=== PATIENT | male | born 1950 | race Caucasian/White ===

== ENCOUNTER 2016-12-03 17:12 | Observation (INO) | payer MEDICARE, OTHER ==
--- NOTE | ~2016-12-03 | OP ---
Record Of Operation [facility] [address] [place]. [address] NAME: BRENDAN LYMAN : 52 STATUS : ADM IN [facility]#: [id number] AGE: 66 ADM/REG DATE : 12/03/16 MR#: [id number] REPORT SERV DATE: 12/04/16 DICTATED BY: CHEN DOYLE DATE: 12/03/16 REPORT STATUS : Draft TRANSCRIBED BY: MODL DATE: 12/03/16 DATE OF PROCEDURE: 12/03/2016 TITLE OF OPERATION: 1. Cystourethroscopy. 2. Laser ablation of bladder neck stones. 3. Laser incision of calcified bladder neck contracture. 4. Clot evacuation. 5. Placement of Read catheter. PREOPERATIVE DIAGNOSES: 1. Urinary retention. 2. Bladder neck contracture. 3. History of prostate cancer. POSTOPERATIVE DIAGNOSES: 1. Urinary retention. 2. Bladder neck contracture. 3. History of prostate cancer. INDICATIONS: The patient is a 66-year-old male history of prostate cancer. He underwent CyberKnife external beam radiation therapy in the past. This has failed. He had salvage prostatectomy. He developed a bladder neck contracture and urinary incontinence. After management of his bladder neck contracture, he underwent artificial urinary sphincter placement with good result. He has been doing fine with the sphincter until recently redeveloped urinary retention and hematuria. In the office, I scoped him and he was found have a bladder neck contracture with severe calcifications, therefore, he is brought to the operating room for operative management. ANESTHESIA: General. COMPLICATIONS: None. IMPLANTS: Fourteen-Danish coude catheter. SPECIMEN: Bladder stone and clot for pathologic identification. NARRATIVE: The patient was brought to the operating room, identified by his wristband. General anesthesia was induced. Ancef was given for preoperative antibiotics. He was placed in dorsal lithotomy position, prepped and draped in sterile fashion. I began the operation by identifying his artificial urinary sphincter pump in his scrotum. The pump was deactivated in the standard fashion. A 20-Danish rigid cystoscope was placed into his urethra and the artificial urinary sphincter cuff was identified and confirmed to be in the deactivated position. I drove the scope pass the sphincter with no difficulty encountered, a dense calcified bladder neck contracture. The bladder was densely pubic bone due to the prior radiation therapy. I could not use any flatus scope into the bladder. Therefore, the Record Of Operation [facility] [address] [place]. [address] NAME: BRENDAN LYMAN : 52 STATUS : ADM IN PAT#: [id number] AGE: 66 ADM/REG DATE : 12/03/16 MR#: [id number] REPORT SERV DATE: 12/04/16 DICTATED BY: CHEN DOYLE DATE: 12/03/16 REPORT STATUS : Draft TRANSCRIBED BY: JORDAN DATE: 12/03/16 scope was removed. A short rigid ureteroscope was then used to instrument and get close to the bladder neck calcified contracture. Using a 365 micron holmium laser fiber, I fragmented the bladder neck stones into multiple pieces until I was able to enter into the bladder. Once in the bladder, a 0.35 Sensor wire was placed into the bladder. A 14-Danish coude catheter was placed over the wire into the bladder, and the bladder was drained of urine. The urine was sent for culture to help guide further therapy. Once the bladder was drained, I drove a 20-Danish rigid cystoscope beside the wire to the level of the bladder neck. Given the increased diameter and scope, I could clearly see the bladder neck was calcified circumferentially. Using a 365 micron holmium laser fiber, I laser ablated and removed all stones from the bladder neck. Bladder neck contracture was incised laterally and superiorly to increase the diameter of the bladder neck. Had not incised inferiorly in fear of inducing a rectourethral fistula given his history of radiation therapy. Once the bladder neck was opened, I drove the scope into the bladder and inspected the bladder mucosa. There was no tumors or abnormalities found. There was a decent amount of clot in his bladder which was evacuated with Ellik evacuator. The Ellik evacuator was also used to evacuate numerous stone particles which were free from the bladder neck. The ureteral orifices were identified and found to be in orthotopic position and without injury. Once the bladder neck was completely free of stones, the scope was removed. The sphincter was inspected on the way out and found to be intact without any evidence of erosion. The sphincter was left deactivated. A 14-Danish coude catheter was placed into the bladder. The balloon was inflated to 50 mL of sterile water. The urine drained from the bladder were clear. There was no significant bleeding going on. At this time, the patient was awoken from anesthesia and transferred to recovery room in stable condition. I will plan on admitting secondary to the hospital overnight for intravenous antibiotics to prevent infection of this device. I also plan leaving his sphincter deactivated for about a week so as the dust settles. Read catheter will be removed in the morning. There were no complications. WARD/JENNIFERL Chen Doyle MD / [id number] CC: MD Juan Abraham M.D.
[~2016-12-03 17:12] MED LIST: AMOXIL500C PO; AUG500 PO; CALTRA600D PO; CINNAMON PO; CLARIT10 PO; CLARITD24H PO; CRESTOR10 PO; DSS PO; ESTER-C PO; FLOMAX4 PO; GLUCCHONDR PO; Glucosamine Chondroi PO; HALF81 PO; K500 PO; L-LYSINE1000 M1 PO; L-LYSINE500 M1 PO; MULTIVITAMI1 PO; OMEGA 3,6,9 PO; PCET PO; VITAMIN B PO; VITAMIN D31000 UNIT PO; VITAMIN E; VITE1000 PO; ZINC PO; ZYRTEC-D ALG PO
[2016-12-03 17:48] LABS: BASOPHILS 0.5 %; BASOPHILS ABSOLUTE 0.07 10/3/uL (0.0-0.16); EOSINOPHILS 1.2 %; EOSINOPHILS ABSOLUTE 0.16 10/3/uL (0.0-0.53); HEMATOCRIT 47.8 % (40.0-51.0); HEMOGLOBIN 16.6 g/dL (13.6-17.8); IMMATURE GRANULOCYTES 0.3 %; IMMATURE GRANULOCYTES ABSOLUTE 0.04 10/3/uL (0.0-0.11); LYMPHOCYTES 10.3 %; LYMPHOCYTES ABSOLUTE 1.35 10/3/uL (0.67-4.30); MEAN CORPUS HGB CONC 34.7 g/dL (32.0-36.0); MEAN CORPUSCULAR HEMOGLOB 30.8 pg (26.0-34.0); MEAN CORPUSCULAR VOLUME 88.7 fL (80-100); MEAN PLATELET VOLUME 8.6 fL (9.2-13.0); MONOCYTES 5.2 %; MONOCYTES ABSOLUTE 0.68 10/3/uL (0.21-1.20); NEUTROPHILS 82.5 %; NEUTROPHILS ABSOLUTE 10.87 10/3/uL (2.02-8.40); PLATELET COUNT 231 10/3/uL (150-400); RBC DISTRIBUTION WIDTH 13.4 % (12.0-16.0); RED CELL COUNT 5.39 10/6/uL (4.7-6.1)
[2016-12-03 17:53] LABS: MANUAL DIFF NO %; WHITE BLOOD CELLS 13.2 10/3/uL (4.5-10.5)
[2016-12-03 18:00] LABS: BUN (BLOOD UREA NITROGEN) 21 MG/DL (6-23); CHLORIDE, SERUM 109 MMOL/L (96-112); CO2 (CARBON DIOXIDE) 24 MMOL/L (24-34); CREATININE 1.01 MG/DL (0.70-1.30); GFR AFRICAN AMERICAN 90 ML/MIN (>=60); GFR NON AFRICAN AMERICAN 78 ML/MIN (>=60); GLUCOSE, SERUM 136 MG/DL (60-99); POTASSIUM, SERUM 4.1 MMOL/L (3.5-5.3); SODIUM, SERUM 145 MMOL/L (135-148)
[2016-12-04 05:18] LABS: CALCIUM, SERUM 8.5 MG/DL (8.5-10.4); CHLORIDE, SERUM 107 MMOL/L (96-112); CO2 (CARBON DIOXIDE) 26 MMOL/L (24-34); CREATININE 0.81 MG/DL (0.70-1.30); GFR AFRICAN AMERICAN 108 ML/MIN (>=60); GFR NON AFRICAN AMERICAN 93 ML/MIN (>=60); GLUCOSE, SERUM 109 MG/DL (60-99); POTASSIUM, SERUM 3.9 MMOL/L (3.5-5.3); SODIUM, SERUM 143 MMOL/L (135-148)
[2016-12-04 05:24] LABS: BUN (BLOOD UREA NITROGEN) 14 MG/DL (6-23)
[2016-12-04 05:25] LABS: BASOPHILS 0.5 %; BASOPHILS ABSOLUTE 0.05 10/3/uL (0.0-0.16); EOSINOPHILS 1.7 %; EOSINOPHILS ABSOLUTE 0.16 10/3/uL (0.0-0.53); HEMOGLOBIN 13.6 g/dL (13.6-17.8); IMMATURE GRANULOCYTES 0.1 %; IMMATURE GRANULOCYTES ABSOLUTE 0.01 10/3/uL (0.0-0.11); LYMPHOCYTES 20.2 %; LYMPHOCYTES ABSOLUTE 1.86 10/3/uL (0.67-4.30); MEAN CORPUSCULAR HEMOGLOB 30.4 pg (26.0-34.0); MEAN CORPUSCULAR VOLUME 86.8 fL (80-100); MONOCYTES 8.3 %; MONOCYTES ABSOLUTE 0.77 10/3/uL (0.21-1.20); NEUTROPHILS 69.2 %; NEUTROPHILS ABSOLUTE 6.38 10/3/uL (2.02-8.40); NUCLEATED RED BLOOD CELLS 0.6 /100WBC (0-0); RBC DISTRIBUTION WIDTH 13.4 % (12.0-16.0); RED CELL COUNT 4.48 10/6/uL (4.7-6.1); WHITE BLOOD CELLS 9.2 10/3/uL (4.5-10.5)
[2016-12-04 05:29] LABS: HEMATOCRIT 38.9 % (40.0-51.0); MANUAL DIFF NO %; PLATELET COUNT 321 10/3/uL (150-400)
[2016-12-04] MEDS ORDERED: BACDS PO (08:41)
[2017-05-06] MEDS ORDERED: AMOXIL500 MG PO (11:34)
== END 2016-12-04 11:34 | disposition home or self-care (01) ==
LOC: SDC 17:12 → 2SO 23:08
PROVIDERS: Urology
PROC: 0TCB8ZZ Extirpation of Matter from Bladder, Via Natural or Artificial Opening Endoscopic (ICD-10-PCS; 2016-12-03)
PROC: 0TCB8ZZ Extirpation of Matter from Bladder, Via Natural or Artificial Opening Endoscopic (ICD-10-PCS; principal; 2016-12-03 18:30)
DX: N21.0 Calculus in bladder (principal); N32.0 Bladder-neck obstruction; Z85.46 Personal history of malignant neoplasm of prostate
CPT/HCPCS: 80048; 80170; 85025; 87086; 88304; 93005; 96374; 96375; A9270-GY; G0378; J0330; J0690; J1580; J2250; J2405; J2710; J3010

== ENCOUNTER 2017-04-27 04:57 | Emergency (ER) | payer MEDICARE, OTHER ==
--- NOTE | ~2017-04-27 | CN ---
Consultation Report [facility] [id number] [facility] [place]. [address] NAME: BRENDAN BOLES : 52 STATUS : REG ER PAT#: [id number] AGE: 67 ADM/REG DATE : 04/27/17 MR#: [id number] REPORT SERV DATE: 04/27/17 DICTATED BY: Tristan CASIANO DATE: 04/27/17 REPORT STATUS : Draft TRANSCRIBED BY: MODL DATE: 04/27/17 EMERGENCY ROOM CONSULTATION NOTE DATE OF CONSULTATION: 04/27/2017 CHIEF COMPLAINT: Inability to urinate with gross hematuria. HISTORY OF PRESENT ILLNESS: Mr. Boles is a 67-year-old white male, with a fairly complicated urologic history, he underwent CyberKnife radiation therapy for localized prostate cancer at some point in the past, he had a recurrence, and underwent salvage radical prostatectomy on 03/07/[address] Downing. Since that time, he has had multiple procedures for dystrophic calcifications at the vesical neck. In addition, he had persistent severe incontinence and underwent a placement of an artificial sphincter on 03/03/2016. He had an additional recurrences of obstruction with hematuria on 12/03/2016 and underwent laser ablation of multiple stones, incision of his calcified bladder neck contracture, and clot evacuation by Dr. Doyle. He was doing reasonably well, he said until he started bleeding several days ago, and over the last 12 hours or so, he has been unable to void. He is in nshobknj-kr-bfzagq distress. He denies fever chills, nausea, and vomiting. PAST MEDICAL HISTORY: 1. Prostate cancer. 2. Radiation cystitis. 3. Dystrophic vesical neck calcifications. 4. Hypertension. PAST SURGICAL HISTORY: 1. Radical prostatectomy, salvage. 2. Multiple cystoscopies with urethral dilations, incision of vesical neck contracture, and stone ablation. 3. Placement of artificial genitourinary sphincter. HOME MEDICATIONS: Daily aspirin, vitamin B complex, calcium and vitamin D, cholecalciferol, docusate sodium, loratadine, glycine, Crestor, omega-3 fatty acids, cinnamon, Nelia-C, glucosamine, and Aquasol. ALLERGIES: HE IS LACTOSE INTOLERANT. REVIEW OF SYSTEMS: Negative except as noted above. FAMILY HISTORY: Negative for urologic disease. PHYSICAL EXAMINATION: Consultation Report [place] [id number] [facility] [place]. [address] NAME: BRENDAN BOLES : 52 STATUS : REG ER PAT#: [id number] AGE: 67 ADM/REG DATE : 04/27/17 MR#: [id number] REPORT SERV DATE: 04/27/17 DICTATED BY: Tristan CASIANO DATE: 04/27/17 REPORT STATUS : Draft TRANSCRIBED BY: MODL DATE: 04/27/17 GENERAL: Uncomfortable appearing, 67-year-old white male. VITAL SIGNS: Afebrile with normal vital signs. HEENT: Normocephalic and atraumatic. CHEST: No respiratory distress. HEART: Regular rate and rhythm. ABDOMEN: Nontender and nondistended. He has suprapubic distention with tenderness. GENITOURINARY: Normal appearing penis. He is leaking some urine into the bed. EXTREMITIES: No peripheral edema noted. The patient is ambulatory. IMPRESSION: 1. Urinary retention. 2. Gross hematuria with history of radiation cystitis. 3. History of dystrophic vesical neck calcifications, status post salvage radical prostatectomy. PLAN: The emergency room tried to place a catheter, I do not think that further attempts in this scenario with him awake are reasonable. I am going to take him to the OR, where I plan to deactivate his sphincter and open up his vesical neck enough to get the catheter in. I discussed with the patient's that if this is not possible or too difficulty, he may well need a suprapubic tube, but I am hopeful that we can at least get a catheter in and further plans for intervention can be discussed. There were no other questions. We will proceed as soon as the OR staff is ready. JPHoa/JORDAN Tristan Casiano M.D. / [id number] CC: Juan Treviño M.D.
--- NOTE | ~2017-04-27 | OP ---
Record Of Operation [facility] [address] [place]. [address] NAME: BRENDAN BOLES : 52 STATUS : REG ER PAT#: [id number] AGE: 67 ADM/REG DATE : 04/27/17 MR#: [id number] REPORT SERV DATE: 04/27/17 DICTATED BY: Tristan CASIANO DATE: 04/27/17 REPORT STATUS : Draft TRANSCRIBED BY: MODL DATE: 04/27/17 DATE OF PROCEDURE: 04/27/2017 PREOPERATIVE DIAGNOSES: 1. Urinary retention. 2. 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 3. Radiation cystitis. POSTOPERATIVE DIAGNOSES: 1. Urinary retention. 2. 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 3. Radiation cystitis. PROCEDURE: Cystoscopy, urethral dilation, laser lithotripsy of vesical neck calcifications, clot evacuation, bladder fulguration, Read catheter placement. SURGEON: Tristan Casiano M.D. ANESTHESIA: General endotracheal. COMPLICATIONS: None. DRAINS: 14-Danish Coude Read catheter. ESTIMATED BLOOD LOSS: Minimal. BRIEF HISTORY: Mr. Boles is a 67-year-old white male, known to my practice, previously seen by me one time with a history of prostate cancer treated with CyberKnife with local failure. Ultimately, treated with salvage radical prostatectomy by Dr. Downing on 03/07/2015. He has had multiple procedures for dystrophic vesical neck calcifications and ultimately had an artificial genitourinary sphincter placed on 03/03/2016. He has had an additional procedure for recurrent calcifications in November of this year. He came to the emergency room with difficulty urinating over 12 hours and gross hematuria for several days. He was in adjunct retention and it was decided to bring him to the operating room to try to place a catheter. We discussed the risks of bleeding, infection, anesthesia, injury to his sphincter, possibility he would need a suprapubic tube. There were no unanswered questions. DESCRIPTION OF PROCEDURE: Under excellent general endotracheal anesthesia, the patient was prepped and draped in standard lithotomy position. His bladder was palpable, I identified his TIA pump in the left hemiscrotum and deactivated in standard fashion. Cystoscopy was performed with a 30-degree lens, and confirmed an open sphincter. Proximal to that, I could see calcifications and obstruction at the vesical neck level. I inserted a short rigid ureteroscope and was able to manipulate into the bladder. There was a lot of debris and clot present, but the vesical neck was reasonably open. There was a small amount of stone that I treated with the laser initially and then reinserted the 20-Danish Storz cystoscope into the bladder. I was able to drain dark black urine and irrigated probably 10 mL of Record Of Operation [place] [facility] [id number] [place]. [address] NAME: BRENDAN BOLES : 52 STATUS : REG ER PAT#: [id number] AGE: 67 ADM/REG DATE : 04/27/17 MR#: [id number] REPORT SERV DATE: 04/27/17 DICTATED BY: Tristan CASIANO DATE: 04/27/17 REPORT STATUS : Draft TRANSCRIBED BY: JORDAN DATE: 04/27/17 clot. The bladder then looked fairly good, there were some areas of radiation change, certainly prominent vessels, one that was bleeding in the bladder base, and ultimately had to be fulgurated with the Bugbee electrode. The orifices were in normal position and appeared to be effluxing clear urine. I brought the scope back to the vesical neck and treated much of the surrounding calcification with laser. I did not attempt to remove all the calcification in this setting, as I think that he is going to need further intervention. As I was dealing with some of the calcification at the 6 o'clock position, I noticed a blue structure that I initially thought was the tip of the laser fiber, but I tried to grasp it and it was not movable, it appeared that it could likely be a suture, although, I am not familiar with exactly what suture was used in a salvage in a robotic prostatectomy. I decided not to try any further manipulation and felt that further removal of stone was probably unnecessary. This may or may not be the nidus for this calcification. I fulgurated several small sites that were bleeding and removed all the debris from the bladder with the Tyesha evacuator. I did send a urine specimen for culture and we will plan to send Mr. Boles home with the following. DISCHARGE INSTRUCTIONS: 1. Home today with Read catheter. 2. Follow up this week with Dr. Doyle to decide on future intervention strategy. 3. Percocet 5/325 one to two p.o. q.4 hours p.r.n. pain, #15 and Septra DS one p.o. b.i.d. x5 days. REJI/JORDAN Tristan Casiano M.D. / [id number] CC: Hao Corado MD
[~2017-04-27 04:57] MED LIST changes: +BACDS PO
[2017-04-27 05:28] LABS: BASOPHILS 0.7 %; BASOPHILS ABSOLUTE 0.07 10/3/uL (0.0-0.16); EOSINOPHILS 2.4 %; EOSINOPHILS ABSOLUTE 0.25 10/3/uL (0.0-0.53); HEMOGLOBIN 14.8 g/dL (13.6-17.8); IMMATURE GRANULOCYTES 0.2 %; IMMATURE GRANULOCYTES ABSOLUTE 0.02 10/3/uL (0.0-0.11); LYMPHOCYTES 10.4 %; LYMPHOCYTES ABSOLUTE 1.09 10/3/uL (0.67-4.30); MEAN CORPUS HGB CONC 34.4 g/dL (32.0-36.0); MEAN CORPUSCULAR HEMOGLOB 30.6 pg (26.0-34.0); MEAN CORPUSCULAR VOLUME 88.8 fL (80-100); MEAN PLATELET VOLUME 8.5 fL (9.2-13.0); MONOCYTES 8.2 %; MONOCYTES ABSOLUTE 0.86 10/3/uL (0.21-1.20); NEUTROPHILS 78.1 %; NEUTROPHILS ABSOLUTE 8.15 10/3/uL (2.02-8.40); PLATELET COUNT 247 10/3/uL (150-400); RBC DISTRIBUTION WIDTH 13.6 % (12.0-16.0); RED CELL COUNT 4.84 10/6/uL (4.7-6.1); WHITE BLOOD CELLS 10.4 10/3/uL (4.5-10.5)
[2017-04-27 05:29] LABS: MANUAL DIFF NO %
[2017-04-27 05:40] LABS: BUN (BLOOD UREA NITROGEN) 19 MG/DL (6-23); CHLORIDE, SERUM 113 MMOL/L (96-112); CO2 (CARBON DIOXIDE) 24 MMOL/L (24-34); CREATININE 0.85 MG/DL (0.70-1.30); GFR AFRICAN AMERICAN 105 ML/MIN (>=60); GFR NON AFRICAN AMERICAN 91 ML/MIN (>=60); POTASSIUM, SERUM 3.7 MMOL/L (3.5-5.3); SODIUM, SERUM 145 MMOL/L (135-148)
[2017-04-27 05:41] LABS: GLUCOSE, SERUM 111 MG/DL (60-99)
[2017-04-27 05:42] LABS: CALCIUM, SERUM 9.2 MG/DL (8.5-10.4)
[2017-05-06] MEDS ORDERED: AMOXIL500 MG PO (11:34)
== END 2017-04-27 06:45 | disposition home or self-care (01) ==
LOC: ER 04:57
PROVIDERS: Specialist
PROC: 0TCB8ZZ Extirpation of Matter from Bladder, Via Natural or Artificial Opening Endoscopic (ICD-10-PCS; 2017-04-27)
PROC: 0TCB8ZZ Extirpation of Matter from Bladder, Via Natural or Artificial Opening Endoscopic (ICD-10-PCS; principal; 2017-04-27 06:15)
DX: R33.9 Retention of urine, unspecified (principal); Z85.46 Personal history of malignant neoplasm of prostate; Z88.8 Allergy status to other drugs, medicaments and biological substances; Z79.899 Other long term (current) drug therapy; Z79.82 Long term (current) use of aspirin
CPT/HCPCS: 80048; 85025; 87086; 96374; 96375; 99285; J0330; J0690; J1170; J2250; J2405; J2710; J3010

== ENCOUNTER 2017-05-11 09:18 | Day surgery (SDC) | payer MEDICARE, OTHER ==
--- NOTE | ~2017-05-11 | OP ---
Record Of Operation [facility] [address] [place]. [address] NAME: BRENDAN BOLES : 52 STATUS : [facility]#: [id number] AGE: 67 ADM/REG DATE : 05/11/17 MR#: [id number] REPORT SERV DATE: 05/12/17 DICTATED BY: CHEN DOYLE DATE: 05/11/17 REPORT STATUS : Draft TRANSCRIBED BY: MODSeda DATE: 05/11/17 DATE OF PROCEDURE: 05/11/2017 TITLE OF OPERATION: Cystourethroscopy, laser ablation of bladder neck stones, laser ablation of bladder neck suture, laser incision of bladder neck contracture. PREOPERATIVE DIAGNOSES: 1. History of prostate cancer. 2. History of bladder neck contracture. 3. Dystrophic calcifications of the bladder neck. 4. History of recurrent urinary retention. 5. Urinary incontinence, status post artificial urinary sphincter placement. POSTOPERATIVE DIAGNOSES: 1. History of prostate cancer. 2. History of bladder neck contracture. 3. Dystrophic calcifications of the bladder neck. 4. History of recurrent urinary retention. 5. Urinary incontinence, status post artificial urinary sphincter placement. INDICATIONS: Mr. Boles is a 67-year-old male with history of prostate cancer. He underwent CyberKnife stereotactic radiation therapy, this failed. He underwent salvage prostatectomy. He has developed a calcified recalcitrant bladder neck contracture. This was resected very aggressively in the past by myself. He eventually had stabilization of this and underwent and artificial urinary sphincter placement. Post sphincter placement, he has developed recurrence of his bladder neck contracture with calcifications. He recently found to have urinary retention and had a catheter placed in the OR by my partner. He is here for reinspection of his bladder neck and ablation of stones. ANESTHESIA: General. COMPLICATIONS: None. IMPLANTS: None. NARRATIVE: The patient was brought to the operating room, identified by his wristband. General anesthesia was induced and Levaquin was given for preoperative antibiotics. He was placed in the dorsal lithotomy position and prepped and draped in sterile fashion. His artificial sphincter was deactivated and locked in the deactivated position. A 20-Bengali cystoscope sheath was placed into his urethra and into his bladder under direct vision. The bladder neck was identified, it was very calcified. The ureteral orifices were identified and were uninvolved. Using a 365 micron laser fiber and a 100 watt laser, the dystrophic calcifications were systematically ablated over his entire bladder neck circumferentially. There was a small what appeared to be Prolene suture at the 6 o'clock position. This was lasered free at its base as well. Next, the bladder neck was incised laterally at the 5 and 7 o'clock positions and again superiorly as well. The bladder neck was widely patent. Record Of Operation [address] [place]. [address] NAME: BRENDAN BOLES : 52 STATUS : [facility] PAT#: [id number] AGE: 67 ADM/REG DATE : 05/11/17 MR#: [id number] REPORT SERV DATE: 05/12/17 DICTATED BY: CHEN DOYLE DATE: 05/11/17 REPORT STATUS : Draft TRANSCRIBED BY: JORDAN DATE: 05/11/17 There were no further calcifications. There was no serious bleeding. The material was evacuated from the bladder. The cuff was inspected. It was not injured. The bladder was filled. The scope was removed. Pressure was placed on his bladder. He had a good solid clear stream. Therefore, decision was made not to place a catheter. The cuff was reactivated. The patient was awoken from anesthesia and transferred to the recovery room in stable condition. I will see him back in two weeks. WARD/JORDAN Chen Doyle MD / [id number] CC: MD Juan Abraham M.D.
[~2017-05-11 09:18] MED LIST changes: +AMOXIL500 MG PO
== END 2017-05-11 16:02 | disposition home or self-care (01) ==
LOC: SDC 09:18
PROVIDERS: Urology
PROC: 0TCB8ZZ Extirpation of Matter from Bladder, Via Natural or Artificial Opening Endoscopic (ICD-10-PCS; principal; 2017-05-11 11:30)
DX: N21.0 Calculus in bladder (principal); R31.9 Hematuria, unspecified; N32.89 Other specified disorders of bladder; E78.5 Hyperlipidemia, unspecified; E78.00 Pure hypercholesterolemia, unspecified; Z85.46 Personal history of malignant neoplasm of prostate; Z98.890 Other specified postprocedural states; Z90.79 Acquired absence of other genital organ(s); Z91.011 Allergy to milk products; Z79.899 Other long term (current) drug therapy; Z79.2 Long term (current) use of antibiotics; Z79.82 Long term (current) use of aspirin
CPT/HCPCS: 88300; 88305; 93005; A9270-GY; J2405; J3010